=== PATIENT | female | born 1995 | race Caucasian/White ===

== ENCOUNTER 2016-11-30 16:28 | Observation (INO) | payer MEDICARE, BC ==
[2016-11-30] MEDS ORDERED: HYDROmorphone 1 MG/ML 1 ML SYRINGE IVP STA (16:53)
[2016-11-30] MEDS ORDERED: SODIUM CHLORIDE 0.9% 1,000 ML IV ONE (16:53)
[2016-11-30 17:45] LABS: Basophils # (A) 0.1 k/uL (0-0.2); Basophils % (A) 0 %; CH 29.7; CHCM 33.6; Eosinophils % (A) 0 %; HCT 44.6 % (34.0-46.0); HDW 2.74; HGB 14.8 gm/dL (11.4-16.0); Luc % (Auto) 1; Lymphocytes # (A) 1.3 k/uL (1.0-4.8); Lymphocytes % (A) 6 %; MCH 29.5 pg (25.0-35.0); MCHC 33.2 g/dL (31.0-37.0); MCV 88.8 fL (80.0-100.0); Mean Platelet Volume 8.3; Monocytes # (A) 0.7 k/uL (0-1.0); Monocytes % (A) 3 %; Neutrophils # (A) 19.4 k/uL (1.3-7.7); Neutrophils % (A) 90 %; RBC 5.02 m/uL (3.80-5.40); RDW 13.4 % (11.5-15.5); WBC 21.6 k/uL (3.8-10.6); WBC (Perox) 20.68
[2016-11-30 17:46] LABS: Anion Gap 10 mmol/L; Blood Urea Nitrogen 11 mg/dL (7-17); Calcium 9.4 mg/dL (8.4-10.2); Carbon Dioxide 17 mmol/L (22-30); Chloride 109 mmol/L (98-107); Glucose 117 mg/dL (74-99); INR 1.1 (<1.2); Non-African American GFR(MDRD) >60 (>60 ml/min/1.73 sqM); Partial Thromboplastin Time 24.3 sec (22.0-30.0); Potassium 4.1 mmol/L (3.5-5.1); Prothrombin Time 11.3 sec (9.0-12.0); Sodium 136 mmol/L (137-145)
[2016-11-30 17:50] LABS: Creatine Kinase 21 U/L (30-135)
[2016-11-30 18:03] LABS: Creatine Kinase MB 0.4 ng/mL (0.0-2.4); Troponin I <0.012 ng/mL (0.000-0.034)
--- NOTE | 2016-11-30 18:16 | CT ---
EXAMINATION TYPE: CT brain kristy gonsales DATE OF EXAM: 11/30/2016 COMPARISON: NONE HISTORY: Patient poor historian. Patient fell from chair. Patient has multiple facial contusions. CT DLP: 1416.[address] Brain: Unenhanced CT of the brain was performed. The ventricles, basal cisterns and sulci overlying the cerebral convexities demonstrate a normal appe arance. There is no evidence for intracranial hemorrhage or sulcal effacement. No mass effects are seen. If symptoms persist consider MRI. Osseous calvarium is intact. IMPRESSION: No acute intracranial process CT Cervical Spine: Unenhanced CT of the cervical spine was performed with bone and soft tissue window settings submitted . Coronal and sagittal reconstruction is obtained. There is normal alignment and prevertebral soft tissues. I do not see evidence for fracture or sublu xation. No significant degenerative changes are present. The lung apices are clear. IMPRESSION: No evidence for acute fracture or subluxation of the cervical spine.
--- NOTE | 2016-11-30 18:19 | CT ---
EXAMINATION TYPE: CT facial bones wo con DATE OF EXAM: 11/30/2016 COMPARISON: NONE HISTORY: Patient poor historian. Patient fell from chair. Patient has multiple facial contusions. CT DLP: 593.[address] of the facial bones was performed in the axial and coronal planes. Bone and soft tissu e window settings are submitted. No significant soft tissue swelling is appreciated. I do not see evidence for displaced facial bone fracture or depressed facial bone fracture. The globes are intact. 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 Osseous expansion of the floor of the right max illary sinus and lateral wall of the right maxillary sinus could reflect a degree of underlying fibro us dysplasia. IMPRESSION: 1. No evidence for depressed or displaced facial bone fracture.
--- NOTE | 2016-11-30 18:33 | ED ---
Fall HPI - General Chief Complaint: Fall Stated Complaint: FALL FROM CHAIR Time Seen by Provider: 11/30/16 16:38 Source: patient, family, EMS Mode of arrival: EMS - History of Present Illness Initial Comments: Patient is a 21-year-old female with a history of osteogenesis imperfecta presents with the chief complaint of a syncopal episode and fall. This happened about an hour prior to arrival. Patient states that she was sitting in a chair, does not remember the events leading up to her passing out. The fall was not witnessed, her brother heard her hit the floor and then found her unconscious. The patient was able to on her own, duration of down time is unknown. Patient was able to sit up from the floor however she needed help standing. Currently the patient complains of facial pain, neck pain, left elbow pain, and left leg pain. Patient has a history of multiple fractures in the past secondary to OI. Patient cannot think of any inciting incidences. She does not have any episodes similar in the past. - Related Data Home Medications Medication Instructions Recorded Confirmed Pantoprazole Sodium [Protonix] 1 tab PO BID 10/28/13 11/14/15 Topiramate [Topamax] 50 mg PO BID 10/28/13 11/14/15 Previous Rx's Medication Instructions Recorded Hydrocodone/Acetaminophen 1 each PO Q4HR PRN #20 tablet 10/28/13 [Hydrocodone/Acetaminophen 5-325] Promethazine [Phenergan] 12.5 mg PO Q4HR #20 tablet 05/14/14 HYDROcodone/APAP 5-325MG [Given 5] 1 each PO Q6HR PRN #15 tab 07/11/14 Hydrocodone/Acetaminophen [Given 1 each PO Q6HR PRN #20 tab 11/14/15 5-325] Allergies Allergy/AdvReac Type Severity Reaction Status Date / Time No Known Allergies Allergy Verified 11/30/16 16:43 Review of Systems ROS Statement: Those systems with pertinent positive or pertinent negative responses have been documented in the HPI. ROS Other: All systems not noted in ROS Statement are negative. Constitutional: Denies: fever Eyes: Denies: vision change ENT: Denies: congestion Respiratory: Denies: cough Cardiovascular: Denies: chest pain, palpitations Endocrine: Denies: fatigue Gastrointestinal: Denies: abdominal pain, nausea, vomiting Genitourinary: Denies: dysuria Musculoskeletal: Denies: back pain Skin: Denies: rash Neurological: Reports: headache Past Medical History Past Medical History: No Reported History Additional Past Medical History / Comment(s): OSTEOGENESIS IMPERFECTA History of Any Multi-Drug Resistant Organisms: None Reported Past Surgical History: Orthopedic Surgery Additional Past Surgical History / Comment(s): bilateral legs elbow left knee cap partial missing Past Psychological History: Anxiety, Depression Smoking Status: Never smoker Past Alcohol Use History: Rare Past Drug Use History: Marijuana General Exam Limitations: physical limitation General appearance: alert, in no apparent distress Head exam: Present: normocephalic, other (Patient had his blood in both nares, she has a linear abrasion to the right maxilla. There is no active bleeding.) Eye exam: Present: PERRL, other (Patient's sclera are blue and otherwise there are no acute findings.) Pupils: Present: normal accommodation ENT exam: Present: normal oropharynx, mucous membranes moist, TM's normal bilaterally, other (Patient has blood in both nares) Neck exam: Present: tenderness, other (Patient is in a c-collar) Respiratory exam: Present: normal lung sounds bilaterally. Absent: respiratory distress Cardiovascular Exam: Present: regular rate, normal rhythm, normal heart sounds GI/Abdominal exam: Present: soft. Absent: distended, tenderness, guarding Rectal exam: Present: deferred Extremities exam: Present: other (Patient has swelling along the lateral aspect of her left tibia.) Back exam: Present: normal inspection Neurological exam: Present: alert, oriented X3 Psychiatric exam: Present: normal affect, normal mood Skin exam: Present: warm, dry, intact Course Vital Signs 11/30/16 16:38 Temperature 97.0 F L Pulse Rate 93 Respiratory 18 Rate Blood Pressure 119/76 O2 Sat by Pulse 96 Oximetry Medical Decision Making - Medical Decision Making Patient with history of osteogenesis imperfecta presents with a chief complaint fall. She complains of head, neck, elbow, and leg pain. Patient has multiple disease related injuries in the past. Patient was given a dose of pain medication, will be sent for CT of the head and neck. I will get plain films of the chest, pelvis, left elbow, and left tibia. Basic and cardiac panel were sent for evaluation of the syncopal episode. I discussed the presentation with the patient and her mother, I will admit this patient for further workup of syncope. EKG performed at 5:35 PM shows normal sinus rhythm with a rate of 73 bpm. Symptoms appear to be within normal limits. There is no ST segment elevations or depressions. 7:52 PM Lab evaluation of this patient is unremarkable. CT scans of the head, neck, and face show no acute or displaced fractures. C-collar was cleared. Other x- ray evaluations do not identify any new acute fractures. I spoke with Dr. Catalan who accepts admission of this patient for further workup. At this time, he is requesting that a consult be placed for neurology. I will consult Dr. Odom. On reevaluation, the patient remains stable. I discussed the care plan with her and her mother. They're agreeable. At this time, all questions are answered. Patient is stable for transfer to the floor. - Lab Data Result diagrams: 11/30/16 17:26 11/30/16 17:26 Lab Results 11/30/16 11/30/16 11/30/16 Range/Units 17:26 17:26 17:26 WBC 21.6 H (3.8-10.6) k/uL RBC 5.02 (3.80-5.40) m/uL Hgb 14.8 (11.4-16.0) gm/dL Hct 44.6 (34.0-46.0) % MCV 88.8 (80.0-100.0) fL MCH 29.5 (25.0-35.0) pg MCHC 33.2 (31.0-37.0) g/dL RDW 13.4 (11.5-15.5) % Plt Count 291 (150-450) k/uL Neutrophils % 90 % Lymphocytes % 6 % Monocytes % 3 % Eosinophils % 0 % Basophils % 0 % Neutrophils # 19.4 H (1.3-7.7) k/uL Lymphocytes # 1.3 (1.0-4.8) k/uL Monocytes # 0.7 (0-1.0) k/uL Eosinophils # 0.0 (0-0.7) k/uL Basophils # 0.1 (0-0.2) k/uL PT (9.0-12.0) sec INR (<1.2) APTT (22.0-30.0) sec Sodium 136 L (137-145) mmol/L Potassium 4.1 (3.5-5.1) mmol/L Chloride 109 H (98-107) mmol/L Carbon Dioxide 17 L (22-30) mmol/L Anion Gap 10 mmol/L BUN 11 (7-17) mg/dL Creatinine 0.53 (0.52-1.04) mg/dL Est GFR (MDRD) Af Amer >60 (>60 ml/min/1.73 sqM) Est GFR (MDRD) Non-Af >60 (>60 ml/min/1.73 sqM) Glucose 117 H (74-99) mg/dL Calcium 9.4 (8.4-10.2) mg/dL Total Creatine Kinase 21 L (30-135) U/L CK-MB (CK-2) 0.4 (0.0-2.4) ng/mL CK-MB (CK-2) Rel Index 1.9 Troponin I <0.012 (0.000-0.034) ng/mL 11/30/16 Range/Units 17:26 WBC (3.8-10.6) k/uL RBC (3.80-5.40) m/uL Hgb (11.4-16.0) gm/dL Hct (34.0-46.0) % MCV (80.0-100.0) fL MCH (25.0-35.0) pg MCHC (31.0-37.0) g/dL RDW (11.5-15.5) % Plt Count (150-450) k/uL Neutrophils % % Lymphocytes % % Monocytes % % Eosinophils % % Basophils % % Neutrophils # (1.3-7.7) k/uL Lymphocytes # (1.0-4.8) k/uL Monocytes # (0-1.0) k/uL Eosinophils # (0-0.7) k/uL Basophils # (0-0.2) k/uL PT 11.3 (9.0-12.0) sec INR 1.1 (<1.2) APTT 24.3 (22.0-30.0) sec Sodium (137-145) mmol/L Potassium (3.5-5.1) mmol/L Chloride (98-107) mmol/L Carbon Dioxide (22-30) mmol/L Anion Gap mmol/L BUN (7-17) mg/dL Creatinine (0.52-1.04) mg/dL Est GFR (MDRD) Af Amer (>60 ml/min/1.73 sqM) Est GFR (MDRD) Non-Af (>60 ml/min/1.73 sqM) Glucose (74-99) mg/dL Calcium (8.4-10.2) mg/dL Total Creatine Kinase (30-135) U/L CK-MB (CK-2) (0.0-2.4) ng/mL CK-MB (CK-2) Rel Index Troponin I (0.000-0.034) ng/mL Disposition Clinical Impression: Syncope, Fall Disposition: ADMITTED IP TO THIS HOSP Condition: Good Referrals: Danielito Lott MD [Primary Care Provider] - 1-2 days Decision to Admit Reason: Admit from EC - Out of Hospital Transfer - Req. Specs Out of Hospital Transfer - Requested Specifics: Other Non-Acute
--- NOTE | 2016-11-30 19:28 | XR ---
EXAMINATION TYPE: XR tibia fibula LT DATE OF EXAM: 11/30/2016 CLINICAL HISTORY: pain TECHNIQUE: AP and lateral images of the left tibia and fibula are obtained. COMPARISON: None. FINDINGS: There is no acute fracture/dislocation evident. Intramedullary rods are seen within the fe mur and tibia. Diffuse bony osteopenia craniotomy compatible with osteogenesis imperfecta. The joint spaces appear within normal limits. The overlying soft tissue appears unremarkable. IMPRESSION: There is no acute fracture or dislocation seen. ICD 10 NO FRACTURE, INITIAL EVALUATION
--- NOTE | 2016-11-30 19:28 | XR ---
EXAMINATION TYPE: XR elbow complete LT DATE OF EXAM: 11/30/2016 CLINICAL HISTORY: pain TECHNIQUE: Frontal, lateral and oblique images of the left elbow are obtained. COMPARISON: None. FINDINGS: There is no acute fracture/dislocation evident of the elbow. Postoperative changes about t he left elbow with the fixation pins in place. No abnormal fat pad signs are seen. The overlying sof t tissue appears unremarkable. IMPRESSION: There is no acute fracture or dislocation of the elbow. ICD 10 NO FRACTURE, INITIAL EVALUATION
--- NOTE | 2016-11-30 19:29 | XR ---
EXAMINATION TYPE: XR knee complete LT DATE OF EXAM: 11/30/2016 CLINICAL HISTORY: pain TECHNIQUE: Three views of the left knee are obtained. COMPARISON: None. FINDINGS: There is no acute fracture/dislocation. Postoperative changes. Changes of osteogenesis im perfecta. The overlying soft tissue appears unremarkable. IMPRESSION: There is no acute fracture or dislocation ICD 10 NO FRACTURE, INITIAL EVALUATION
--- NOTE | 2016-11-30 19:30 | XR ---
EXAMINATION TYPE: XR chest 1V portable DATE OF EXAM: 11/30/2016 COMPARISON: NONE HISTORY: Chest pain TECHNIQUE: Single frontal view of the chest is obtained. FINDINGS: There is no focal air space opacity, pleural effusion, or pneumothorax seen. The cardiac silhouette size is within normal limits. The osseous structures are intact. IMPRESSION: 1. No acute process.
[2016-11-30] MEDS ORDERED: MORPHINE SULFATE 4 MG/ML SYRINGE IV PRN (19:55)
[2016-11-30] MEDS ORDERED: NALOXONE 0.4 MG/ML 1 ML VIAL IV PRN (19:55)
[2016-11-30] MEDS: KETOROLAC 30 MG/ML 1 ML VIAL IVP PRN (21:46)
[2016-11-30 22:09] VITALS: BMI 32.5
[2016-11-30 22:11] LABS: Appearance,Urine Cloudy (Clear); Bacteria,Urine Moderate /hpf; Bilirubin,Urine Negative (Negative); Glucose,Urine (UA) Negative (Negative); Ketones,Urine 1+ (Negative); Leukocyte Esterase,Urine Negative (Negative); Mucus,Urine Moderate /hpf; Nitrite,Urine Negative (Negative); Particle Count 7536; Protein,Urine Trace (Negative); RBC,Urine 3 /hpf (0-5); Specific Gravity,Urine 1.017 (1.001-1.035); Squamous Epithelial Cell,Urine 5 /hpf (0-4); UA Billing (MACRO vs. MICRO) MICRO; Urobilinogen,Urine <2.0 mg/dL (<2.0); WBC,Urine 3 /hpf (0-5)
[2016-12-01 06:11] LABS: Basophils # (A) 0.1 k/uL (0-0.2); Basophils % (A) 0 %; CH 30.3; CHCM 33.3; Eosinophils # (A) 0.1 k/uL (0-0.7); Eosinophils % (A) 1 %; HCT 40.4 % (34.0-46.0); HDW 2.66; HGB 12.9 gm/dL (11.4-16.0); Luc % (Auto) 2; Lymphocytes # (A) 1.8 k/uL (1.0-4.8); Lymphocytes % (A) 14 %; MCH 29.3 pg (25.0-35.0); MCV 91.5 fL (80.0-100.0); Mean Platelet Volume 8.8; Monocytes # (A) 0.7 k/uL (0-1.0); Monocytes % (A) 5 %; Neutrophils # (A) 10.2 k/uL (1.3-7.7); Neutrophils % (A) 78 %; RBC 4.42 m/uL (3.80-5.40); WBC (Perox) 12.57
[2016-12-01 06:22] LABS: Anion Gap 10 mmol/L; Blood Urea Nitrogen 11 mg/dL (7-17); Calcium 9.2 mg/dL (8.4-10.2); Carbon Dioxide 17 mmol/L (22-30); Chloride 110 mmol/L (98-107); Glucose 76 mg/dL (74-99); Non-African American GFR(MDRD) >60 (>60 ml/min/1.73 sqM); Potassium 4.2 mmol/L (3.5-5.1); Sodium 137 mmol/L (137-145)
[2016-12-01] MEDS: KETOROLAC 30 MG/ML 1 ML VIAL IVP PRN ×2 (07:17→12:18)
[2016-12-01] MEDS ORDERED: SODIUM CHLORIDE 0.9% 1,000 ML IV SCH (11:15)
--- NOTE | 2016-12-01 13:06 | P.CRDCN ---
History of Present Illness Consult date: 12/01/16 History of present illness: This is a 21-year-old female with past medical history significant for anxiety, depression, migraines and osteogenesis imperfecta. We have been asked to see the patient for complaints of a syncopal episode at home. She states she was sitting down in bed watching a movie when she became acutely nauseous and then passed out. She doesn't recall any events thereafter. Apparently her brother was home and witnessed the event. He denies any incontinence or seizure like activity. Prior to the event and immediately after she denies any symptoms of chest pain, shortness of breath, palpitations or vomiting. Blood pressure upon arrival 119/76 with heart rate 93, repeat today 101/64 with heart rate 78. She states her blood pressure runs on the low side typically. Hgb 12.9, BUN 11, Cr 0.4, cardiac enzymes negative x3. She admits to regular daily marijuana use. She denies any cardiac history and has never seen a adult services librarian for any reason. Review of Systems REVIEW OF SYSTEMS: CONSTITUTIONAL: No fever, no malaise, no fatigue. HEENT: No recent visual problems or hearing problems. Denied any sore throat. CARDIOVASCULAR: No chest pain, orthopnea, PND, positive syncope. PULMONARY: No shortness of breath, no cough, no hemoptysis. GASTROINTESTINAL: No diarrhea, no nausea, no vomiting, no abdominal pain. Normoactive bowel sounds. NEUROLOGICAL: No headaches, no weakness, no numbness. HEMATOLOGICAL: Denies any bleeding. GENITOURINARY: Denies any burning micturition, frequency, or urgency. MUSCULOSKELETAL/RHEUMATOLOGICAL: Denies any joint pain, swelling, or any muscle pain. ENDOCRINE: Denies any polyuria or polydipsia. Past Medical History Past Medical History: No Reported History Additional Past Medical History / Comment(s): OSTEOGENESIS IMPERFECTA History of Any Multi-Drug Resistant Organisms: None Reported Past Surgical History: Orthopedic Surgery Additional Past Surgical History / Comment(s): bilateral legs elbow left knee cap partial missing Past Anesthesia/Blood Transfusion Reactions: No Reported Reaction Past Psychological History: Anxiety, Depression Smoking Status: Never smoker Past Alcohol Use History: Rare Past Drug Use History: Marijuana Medications and Allergies Home Medications Medication Instructions Recorded Confirmed Type Topiramate [Topamax] 75 mg PO BID 10/28/13 11/30/16 History busPIRone HCl [Buspar] 10 mg PO BID 11/30/16 11/30/16 History Allergies Allergy/AdvReac Type Severity Reaction Status Date / Time No Known Allergies Allergy Verified 11/30/16 20:21 Physical Exam Vitals: Vital Signs Temp Pulse Pulse Resp BP BP Pulse Ox 12/01/16 07:12 97.8 F 78 17 101/64 99 12/01/16 03:02 97.7 F 83 16 89/49 98 12/01/16 00:00 16 11/30/16 22:00 97.6 F 88 16 112/70 96 11/30/16 16:38 97.0 F L 93 18 119/76 96 Intake and Output 11/30/16 12/01/16 12/01/16 22:59 06:59 14:59 Intake Total 1099 Output Total 0 Balance 1099 0 Intake: Intake, IV Titration 999 Amount Sodium Chloride 0.9% 1, 999 000 ml @ 999 mls/hr IV . Q1H1M ONE Rx#:[id number] Oral 100 Output: Urine 0 Other: Voiding Method Bedside Commode # Voids 1 1 Weight 58.967 kg GENERAL: This is a 21-year-old female in no apparent distress at the time of my examination. HEENT: Head is atraumatic, normocephalic. Pupils are equal, round. Sclerae anicteric. Conjunctivae are clear. Mucous membranes of the mouth are moist. Neck is supple. There is no jugular venous distention. No carotid bruit is heard. LUNGS: Clear to auscultation no wheezes, rales or rhonchi. No chest wall tenderness is noted on palpation or with deep breathing. HEART: Regular rate and rhythm without murmurs, rubs or gallops. S1 and S2 heard. ABDOMEN: Soft, nontender. Bowel sounds are heard. No organomegaly noted. EXTREMITIES: 2+ peripheral pulses with trace evidence of nonpitting peripheral edema and no calf tenderness noted. NEUROLOGIC: Patient is awake, alert and oriented x3. Results 12/01/16 05:23 12/01/16 05:23 Cardiac Enzymes 11/30/16 11/30/16 12/01/16 Range/Units 17:26 23:20 05:23 CK-MB (CK-2) 0.4 (0.0-2.4) ng/mL Troponin I <0.012 <0.012 <0.012 (0.000-0.034) ng/mL Coagulation 11/30/16 Range/Units 17:26 PT 11.3 (9.0-12.0) sec APTT 24.3 (22.0-30.0) sec CBC 11/30/16 12/01/16 Range/Units 17:26 05:23 WBC 21.6 H 13.0 H (3.8-10.6) k/uL RBC 5.02 4.42 (3.80-5.40) m/uL Hgb 14.8 12.9 (11.4-16.0) gm/dL Hct 44.6 40.4 (34.0-46.0) % Plt Count 291 236 (150-450) k/uL Comprehensive Metabolic Panel 11/30/16 12/01/16 Range/Units 17:26 05:23 Sodium 136 L 137 (137-145) mmol/L Potassium 4.1 4.2 (3.5-5.1) mmol/L Chloride 109 H 110 H (98-107) mmol/L Carbon Dioxide 17 L 17 L (22-30) mmol/L BUN 11 11 (7-17) mg/dL Creatinine 0.53 0.40 L (0.52-1.04) mg/dL Glucose 117 H 76 (74-99) mg/dL Calcium 9.4 9.2 (8.4-10.2) mg/dL Current Medications Generic Name Dose Route Start Last Admin Trade Name Freq PRN Reason Stop Dose Admin Sodium Chloride 1,000 mls @ 75 mls/hr 12/01/16 11:15 12/01/16 12:23 Saline 0.9% IV 75 mls/hr .[id number] LAM Administration Ketorolac Tromethamine 30 mg 11/30/16 19:55 12/01/16 12:18 Toradol IVP 12/05/16 19:56 30 mg Q6HR PRN Administration Moderate Pain Morphine Sulfate 4 mg 11/30/16 19:55 Morphine Sulfate (Inj) IV Q4HR PRN Severe Pain Naloxone HCl 0.2 mg 11/30/16 19:55 Narcan IV Q2M PRN Opioid Reversal Intake and Output 11/30/16 12/01/16 12/01/16 22:59 06:59 14:59 Intake Total 1099 Output Total 0 Balance 1099 0 Intake: Intake, IV Titration 999 Amount Sodium Chloride 0.9% 1, 999 000 ml @ 999 mls/hr IV . Q1H1M ONE Rx#:[id number] Oral 100 Output: Urine 0 Other: Voiding Method Bedside Commode # Voids 1 1 Weight 58.967 kg 12/01/16 05:23 12/01/16 05:23 EKG Interpretations (text) EKG reveals normal sinus mechanism with no acute ST or T-wave abnormalities. Assessment and Plan Plan: ASSESSMENT 1. Syncopal episode PLAN Echocardiogram was performed and reviewed in real time by Dr. Quan, normal LV function and structure, normal right ventricle and aortic root. Check orthostatic blood pressures. Continue with telemetry monitoring for arrhythmias. Thus far, from a cardiac perspective this doesn't appear to be cardiac related. Possibly vasovagal episode. Nurse Practitioner note has been reviewed, I agree with a documented findings and plan of care. Patient was seen and examined.
[2016-12-01 14:26] VITALS: PULSE 98; RESP 16; TEMP 98.1
[2016-12-01 14:43] VITALS: BP 102/65
--- NOTE | 2016-12-01 16:34 | P.HPIM ---
History of Present Illness This is a 21-year-old female with past medical history significant for anxiety, depression, migraines and osteogenesis imperfecta. We have been asked to see the patient for complaints of a syncopal episode at home. She states she was sitting down in bed watching a movie when she became acutely nauseous and then passed out. She doesn't recall any events thereafter. Apparently her brother was home and witnessed the event. He denies any incontinence or seizure like activity. Prior to the event and immediately after she denies any symptoms of chest pain, shortness of breath, palpitations or vomiting. Blood pressure upon arrival 119/76 with heart rate 93, repeat today 101/64 with heart rate 78. She states her blood pressure runs on the low side typically. cardiac enzymes negative x3. She admits to regular daily marijuana use. She denies any cardiac history and has never seen a dipping machine operator for any reason. patient had an echocardiogram which was negative monitoring analyst did not show any significant abnormality, patient was probably dehydrated received enough fluids is cleared for discharge from cardiology perspective and TSH is essentially within normal limits patient will be discharged to follow with primary care patient if she has falls again patient may need a Holter monitor. Review of Systems REVIEW OF SYSTEMS: CONSTITUTIONAL: No fever, no malaise, no fatigue. HEENT: No recent visual problems or hearing problems. Denied any sore throat. CARDIOVASCULAR: No chest pain, orthopnea, PND, no palpitations PULMONARY: No shortness of breath, no cough, no hemoptysis. GASTROINTESTINAL: No diarrhea, no nausea, no vomiting, no abdominal pain. Normoactive bowel sounds. NEUROLOGICAL: No headaches, no weakness, no numbness. HEMATOLOGICAL: Denies any bleeding or petechiae. GENITOURINARY: Denies any burning micturition, frequency, or urgency. MUSCULOSKELETAL/RHEUMATOLOGICAL: Denies any joint pain, swelling, or any muscle pain. ENDOCRINE: Denies any polyuria or polydipsia. The rest of the 14-point review of systems is negative. Past Medical History Past Medical History: No Reported History Additional Past Medical History / Comment(s): OSTEOGENESIS IMPERFECTA History of Any Multi-Drug Resistant Organisms: None Reported Past Surgical History: Orthopedic Surgery Additional Past Surgical History / Comment(s): bilateral legs elbow left knee cap partial missing Past Anesthesia/Blood Transfusion Reactions: No Reported Reaction Past Psychological History: Anxiety, Depression Smoking Status: Never smoker Past Alcohol Use History: Rare Past Drug Use History: Marijuana Medications and Allergies Home Medications Medication Instructions Recorded Confirmed Type Topiramate [Topamax] 75 mg PO BID 10/28/13 11/30/16 History busPIRone HCl [Buspar] 10 mg PO BID 11/30/16 11/30/16 History Allergies Allergy/AdvReac Type Severity Reaction Status Date / Time No Known Allergies Allergy Verified 11/30/16 20:21 Physical Exam Vitals: Vital Signs Temp Pulse Pulse Resp BP BP BP 12/01/16 14:25 98.1 F 98 16 12/01/16 12:00 73 115/71 111/72 12/01/16 07:12 97.8 F 78 17 12/01/16 03:02 97.7 F 83 16 12/01/16 00:00 16 11/30/16 22:00 97.6 F 88 16 11/30/16 16:38 97.0 F L 93 18 119/76 BP BP Pulse Ox 12/01/16 14:25 115/55 96 12/01/16 12:00 102/65 12/01/16 07:12 101/64 99 12/01/16 03:02 89/49 98 12/01/16 00:00 11/30/16 22:00 112/70 96 11/30/16 16:38 96 Intake and Output 12/01/16 12/01/16 12/01/16 06:59 14:59 22:59 Intake Total 180 Output Total 0 Balance 0 180 Intake: Oral 180 Output: Urine 0 Other: # Voids 1 3 PHYSICAL EXAMINATION: GENERAL: The patient is alert and oriented x3, not in any acute distress. Well developed, well nourished. HEENT: Pupils are round and equally reacting to light. EOMI. No scleral icterus. No conjunctival pallor. Normocephalic, atraumatic. No pharyngeal erythema. No thyromegaly. there are some lacerations from fall on the face CARDIOVASCULAR: S1 and S2 present. No murmurs, rubs, or gallops. PULMONARY: Chest is clear to auscultation, no wheezing or crackles. ABDOMEN: Soft, nontender, nondistended, normoactive bowel sounds. No palpable organomegaly. MUSCULOSKELETAL: No joint swelling or deformity. EXTREMITIES: No cyanosis, clubbing, or pedal edema. NEUROLOGICAL: Gross neurological examination did not reveal any focal deficits. SKIN: No rashes. Results CBC & Chem 7: 12/01/16 05:23 12/01/16 05:23 Labs: Abnormal Lab Results - Last 24 Hours (Table) 11/30/16 11/30/16 11/30/16 Range/Units 17:26 17:26 17:26 WBC 21.6 H (3.8-10.6) k/uL Neutrophils # 19.4 H (1.3-7.7) k/uL Sodium 136 L (137-145) mmol/L Chloride 109 H (98-107) mmol/L Carbon Dioxide 17 L (22-30) mmol/L Creatinine (0.52-1.04) mg/dL Glucose 117 H (74-99) mg/dL Total Creatine Kinase 21 L (30-135) U/L Urine Appearance (Clear) Urine Protein (Negative) Urine Ketones (Negative) Urine Blood (Negative) Ur Squamous Epith Cells (0-4) /hpf Urine Bacteria (None) /hpf Urine Mucus (None) /hpf Urine Opiates Screen (NotDetected) U Marijuana (THC) Screen (NotDetected) 11/30/16 12/01/16 12/01/16 Range/Units 21:47 05:15 05:23 WBC 13.0 H (3.8-10.6) k/uL Neutrophils # 10.2 H (1.3-7.7) k/uL Sodium (137-145) mmol/L Chloride (98-107) mmol/L Carbon Dioxide (22-30) mmol/L Creatinine (0.52-1.04) mg/dL Glucose (74-99) mg/dL Total Creatine Kinase (30-135) U/L Urine Appearance Cloudy H (Clear) Urine Protein Trace H (Negative) Urine Ketones 1+ H (Negative) Urine Blood Trace H (Negative) Ur Squamous Epith Cells 5 H (0-4) /hpf Urine Bacteria Moderate H (None) /hpf Urine Mucus Moderate H (None) /hpf Urine Opiates Screen Detected H (NotDetected) U Marijuana (THC) Screen Detected H (NotDetected) 12/01/16 Range/Units 05:23 WBC (3.8-10.6) k/uL Neutrophils # (1.3-7.7) k/uL Sodium (137-145) mmol/L Chloride 110 H (98-107) mmol/L Carbon Dioxide 17 L (22-30) mmol/L Creatinine 0.40 L (0.52-1.04) mg/dL Glucose (74-99) mg/dL Total Creatine Kinase (30-135) U/L Urine Appearance (Clear) Urine Protein (Negative) Urine Ketones (Negative) Urine Blood (Negative) Ur Squamous Epith Cells (0-4) /hpf Urine Bacteria (None) /hpf Urine Mucus (None) /hpf Urine Opiates Screen (NotDetected) U Marijuana (THC) Screen (NotDetected) Thrombosis Risk Factor Assmnt - Choose All That Apply Each Factor Represents 1 point: Obesity (BMI >25) Thrombosis Risk Factor Assessment Total Risk Factor Score: 1 Thrombosis Risk Factor Assessment Level: Low Risk Assessment and Plan Plan: #1 syncope: Echo cardiac within normal limits no significant changes on the telemetry probably related to dehydration R vasovagal eventpatient is being discharged today. #2 hyperchloremia leading to metabolic acidosis secondary to IV fluids. #3 osteogenesis imperfecta. #4 marijuana use: Counseling was provided #5 asymptomatic bacteriuria
--- NOTE | 2016-12-01 16:34 | P.DS ---
Providers Date of admission: 11/30/16 20:18 Attending physician: Mel Catalan Consults: 12/01/16 11:01 Consult Physician Routine Consulting Provider: Mo Quan Consult Reason/Comments: syncope/fall Do you want consulting provider notified?: Yes Primary care physician: Kaylie Esteves [facility] Course: please refer to HPI Patient Condition at Discharge: Good Plan - Discharge Summary New Discharge Prescriptions: No Action Topiramate [Topamax] 75 mg PO BID busPIRone HCl [Buspar] 10 mg PO BID Discharge Medication List Topiramate [Topamax] 75 mg PO BID 10/28/13 [History] busPIRone HCl [Buspar] 10 mg PO BID 11/30/16 [History] Follow up Appointment(s)/Referral(s): Danielito Lott MD [Primary Care Provider] - 12/05/16 1:20 pm Patient Instructions/Handouts: Syncope (DC) Discharge Disposition: HOME SELF-CARE
--- NOTE | 2016-12-02 09:30 | ECHOF ---
Referral Reason:syncope MEASUREMENTS -------- HEIGHT: 139.7 cm WEIGHT: 59.0 kg BP: IVSd: 0.9 cm (0.6 - 1.1) LVIDd: 3.4 cm (3.9 - 5.3) LVPWd: 1.0 cm (0.6 - 1.1) IVSs: 1.4 cm LVIDs: 2.2 cm LVPWs: 1.4 cm Ao Diam: 2.5 cm (2.0 - 3.7) AV Cusp: 1.7 cm (1.5 - 2.6) LA Diam: 2.9 cm (2.7 - 3.8) MV EXCURSION: 11.280 mm (> 18.000) MV EF SLOPE: 78 mm/s (70 - 150) EPSS: 1.0 cm MV E Eliezer: 0.93 m/s MV DecT: 273 ms MV A Eliezer: 0.73 m/s MV E/A Ratio: 1.27 RAP: 5.00 mmHg RVSP: 19.60 mmHg FINDINGS -------- Sinus rhythm. This was a technically good study. The left ventricular size is normal. Left ventricular wall thickness is normal. Overall left ventricular systolic function is normal with, an EF between 55 - 60 %. The right ventricle is normal in size and function. The left atrium is normal in size. The right atrium is normal in size. The aortic valve is trileaflet, and appears structurally normal. No aortic stenosis or regurgitation. The mitral valve leaflets are mildly thickened. Mild mitral regurgitation is present. Mild tricuspid regurgitation present. The right ventricular systolic pressure, as measured by Doppler, is 19.60mmHg. Pulmonic valve appears structurally normal. The aortic root size is normal. Normal inferior vena cava with normal inspiratory collapse consistent with estimated right atrial pressure of 5 mmHg. The pericardium is normal. CONCLUSIONS -------- 1. Sinus rhythm. 2. The mitral valve leaflets are mildly thickened. 3. Mild mitral regurgitation is present. 4. Mild tricuspid regurgitation present. 5. The right ventricular systolic pressure, as measured by Doppler, is 19.60mmHg. 6. Pulmonic valve appears structurally normal. 7. The aortic root size is normal. 8. Normal inferior vena cava with normal inspiratory collapse consistent with estimated right atrial pressure of 5 mmHg. 9. The pericardium is normal. 10. This was a technically good study. 11. The left ventricular size is normal. 12. Left ventricular wall thickness is normal. 13. Overall left ventricular systolic function is normal with, an EF between 55 - 60 %. 14. The right ventricle is normal in size and function. 15. The left atrium is normal in size. 16. The right atrium is normal in size. 17. The aortic valve is trileaflet, and appears structurally normal. No aortic stenosis or regurgitation. INFORMATION TECHNOLOGY INSTRUCTOR: Leonela Donahue RDCS
== END 2016-12-01 15:30 | disposition home or self-care (01) ==
LOC: EC 16:28 → 3SUR 20:18
PROVIDERS: ADMIT Internal Medicine; ATTEND Internal Medicine
DX: R55 Syncope and collapse (principal); S00.83XA Contusion of other part of head, initial encounter; S80.811A Abrasion, right lower leg, initial encounter; W07.XXXA Fall from chair, initial encounter; Y93.89 Activity, other specified; Q78.0 Osteogenesis imperfecta; M54.2 Cervicalgia; M79.605 Pain in left leg; M25.522 Pain in left elbow; F41.9 Anxiety disorder, unspecified; F32.9 Major depressive disorder, single episode, unspecified; G43.909 Migraine, unspecified, not intractable, without status migrainosus; F12.90 Cannabis use, unspecified, uncomplicated; R82.71 Bacteriuria; E87.8 Other disorders of electrolyte and fluid balance, not elsewhere classified; Z79.899 Other long term (current) drug therapy
CPT/HCPCS: 96376; 96361 ×2; 96375; 96374; 99285; 36415; 93005; 93306; 80048 ×2; 84443; 82550; 82553; 83735; 84484 ×2; 85025 ×2; 85610; 85730; 81001; 80306; 71010; 73080; 73590; 73562; 72125; 70486; 70450; G0378 ×2; J1885 ×2; J1170

== ENCOUNTER → 2017-06-21 | Outpatient (CLI) | payer MEDICARE ==
--- NOTE | 2017-06-21 21:21 | MR ---
EXAMINATION TYPE: MR brain wo con DATE OF EXAM: 06/21/2017 COMPARISON: 09/27/2013 HISTORY: Headaches and Dizzy, previous MRI on PACS CONTRAST: Performed utilizing 0 mL intravenous Gadavist gadolinium contrast. TECHNIQUE: Multiplanar, multiecho imaging on a 3.0 Ashley magnet is performed through the brain. Stud y is performed within 24 hours of arrival to the hospital. The craniovertebral junction is normal. The pituitary is normal. Diffusion-weighted imaging is performed. No abnormal hyperintensity is present to suggest an acute i ntracranial infarct or acute ischemic change. Signal within the brain is normal. Portion of the optic chiasm visualized is unremarkable. Normal cece w-voids are present within vascular structures. Orbits appear normal. Internal auditory canals appear normal. Temporal lobes are symmetrical. Ventricles and sulci are appropriate for the patient age. IMPRESSIONS: 1. No acute intracranial process.
== END | disposition home or self-care (01) ==
LOC: RADMRIMAIN 17:01
PROVIDERS: ATTEND Psychiatry & Neurology Neurology
DX: R51 Headache (principal); R42 Dizziness and giddiness; Z88.0 Allergy status to penicillin; Z91.040 Latex allergy status
CPT/HCPCS: 70551

== ENCOUNTER 2017-07-12 12:23 | Emergency (ER) | payer MEDICARE ==
[2017-07-12] MEDS ORDERED: IBUPROFEN 600 MG TAB PO STA (12:44)
[2017-07-12 12:46] VITALS: RESP 16; TEMP 98
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
--- NOTE | 2017-07-12 13:06 | XR ---
EXAMINATION TYPE: XR wrist limited RT DATE OF EXAM: 07/12/2017 COMPARISON: 06/12/2012 HISTORY: 22-year-old female wrist pain after fall today TECHNIQUE: 2 views FINDINGS: There are angulated oblique fractures of the distal radial and ulnar metaphyses with mild comminution and associated soft tissue swelling. There is radial and dorsal angulation. Slight extension of the radial fracture into the distal radial ulnar joint. Old healed fracture deformity of the third metaca rpal shaft. IMPRESSION: Angulated oblique fractures of the distal radial and ulnar metaphyses with mild comminution. The radi al fracture extends into the distal radioulnar joint.
[2017-07-12] MEDS ORDERED: MORPHINE SULFATE 4 MG/ML SYRINGE IM STA (13:37)
[2017-07-12] MEDS ORDERED: ONDANSETRON ODT 4 MG TAB PO STA (14:05)
[2017-07-12 14:43] VITALS: BP 130/78; PULSE 88
== END 2017-07-12 14:40 | disposition home or self-care (01) ==
LOC: EC 12:23
DX: S59.001A Unspecified physeal fracture of lower end of ulna, right arm, initial encounter for closed fracture (principal); S59.201A Unspecified physeal fracture of lower end of radius, right arm, initial encounter for closed fracture; F41.9 Anxiety disorder, unspecified; F32.9 Major depressive disorder, single episode, unspecified; Z79.899 Other long term (current) drug therapy; Q78.0 Osteogenesis imperfecta; W22.8XXA Striking against or struck by other objects, initial encounter
CPT/HCPCS: 73100; 99283; 29125; 96372; J2270

== ENCOUNTER 2017-07-17 13:28 | Day surgery (SDC) | payer MEDICARE ==
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
[~2017-07-17 13:28] MED LIST: ceFAZolin 1,000 MG in DEXTROSE/WATER 1 50ML.BAG IV ONE
[2017-07-17] MEDS ORDERED: LACTATED RINGERS 1,000 ML IV ONE (14:54)
[2017-07-17] MEDS ORDERED: MIDAZOLAM 2 MG/2 ML VIAL ONE (14:54)
[2017-07-17] MEDS ORDERED: LIDOCAINE 1% 20 ML VIAL (10MG/ML) FOR IV START INTRADERMA ONE (15:01)
[2017-07-17] MEDS ORDERED: ONDANSETRON 4 MG/2 ML VIAL ONE (15:17)
[2017-07-17] MEDS ORDERED: DEXAMETHASONE SOD PHOSPHATE 10 MG/ML 1 ML VIAL IV ONE (15:29)
[2017-07-17 17:43] VITALS: BMI 28.5
[2017-07-17] MEDS ORDERED: BUTALB/APAP/CAFF 50-325-40MG TAB PO PRN (19:02)
[2017-07-17] MEDS: TOPIRAMATE 25 MG TAB PO SCH (20:14)
[2017-07-17] MEDS: busPIRone HCl 10 MG TAB PO SCH (20:15)
[2017-07-17] MEDS ORDERED: ONDANSETRON 4 MG/2 ML VIAL IVP PRN (21:28)
[2017-07-17] MEDS: MORPHINE SULFATE 4 MG/ML SYRINGE IVP PRN (22:15)
[2017-07-18] MEDS: MORPHINE SULFATE 4 MG/ML SYRINGE IVP PRN (02:34)
[2017-07-18] MEDS ORDERED: ceFAZolin 1,000 MG in DEXTROSE/WATER 1 50ML.BAG IVPB ONE (05:00)
[2017-07-18] MEDS ORDERED: IV FLUID CONTINUATION 1,000 ML IV ONE (06:49)
[2017-07-18] MEDS ORDERED: MIDAZOLAM 2 MG/2 ML VIAL ONE (07:21)
[2017-07-18] MEDS ORDERED: fentaNYL (PF) 50 MCG/ML 2 ML AMP ONE (07:21)
[2017-07-18] MEDS ORDERED: LIDOCAINE 1% INJ 10MG/ML (20 ML MDV) ONE (07:21)
[2017-07-18] MEDS ORDERED: PROPOFOL 10 MG/ML 20 ML VIAL IV ONE (07:21)
[2017-07-18] MEDS ORDERED: ONDANSETRON 4 MG/2 ML VIAL ONE (07:21)
--- NOTE | 2017-07-18 08:11 | P.OP ---
Date of Procedure: 07/18/17 Preoperative Diagnosis: Displaced right extra-articular distal radius/ulnar fractures Postoperative Diagnosis: Same Procedure(s) Performed: Closed reduction with percutaneous pinning right distal extra-articular radius fracture Implants: 0.062 inch K wire 3 Anesthesia: KATHY Surgeon: [employer] Librarian #1: Brenden Young Estimated Blood Loss (ml): 1 Pathology: none sent Condition: stable Disposition: PACU Indications for Procedure: The patient's a 22-year-old female with osteogenesis imperfecta who presents after falling injuring her right wrist. Upon evaluation she is noted have a closed, comminuted right distal radius and ulna fracture. A discussion of the risks and benefits of operative intervention was made with patient. She opted to proceed. I informed her we likely proceed with closed reduction and percutaneous pinning. Specific risks of this procedure to include infection, neurovascular injury, possible development of nonunion, malunion, and possible need for subsequent procedures was discussed. Informed consent was obtained. Operative Findings: As below Description of Procedure: The patient was brought to the operating room, and after induction of general anesthesia the right distal radius nor fracture was reduced with longitudinal traction and manipulation. This was verified with fluoroscopy. The right upper extremity was prepped and draped in a normal fashion. 2 K wires measuring 0.062 inch in diameter were then placed starting and the radial styloid spanning the fracture site proximally. A third 0.062 inch K wire was placed along the dorsal ulnar corner of the distal radius spanning the fracture site proximally. Final fluoroscopic views to include AP, PA, and lateral views showed adequate reduction of this comminuted extra-articular distal radius fracture. The distal ulna fracture. Reasonably aligned. The pins were clipped below the skin. A well molded sugar tong splint was placed. The patient was awoken from general anesthesia and transferred to the recovery room in good condition. Blood loss was estimated at 1 mL. No complications were incurred.
[2017-07-18] MEDS: HYDROmorphone 0.5 MG/0.5 ML SYRINGE IVP ONE ×2 (08:16→08:25)
--- NOTE | 2017-07-18 08:25 | FL ---
Fluoroscopy INDICATION: Pain FINDINGS: Fluoroscopy time: 42 seconds. Images obtained: 5. IMPRESSIONS: 1. Documentation of fluoroscopy.
--- NOTE | 2017-07-18 08:34 | XR ---
Fluoroscopy INDICATION: Pain FINDINGS: Fluoroscopy time: 42 seconds. Images obtained: 5. Images demonstrate pinning of the distal radial fracture. Ulnar fractures within the [id number]. IMPRESSIONS: 1. Documentation of fluoroscopy.
[2017-07-18] MEDS: TOPIRAMATE 25 MG TAB PO SCH (09:25)
[2017-07-18] MEDS: busPIRone HCl 10 MG TAB PO SCH (09:25)
[2017-07-18] MEDS ORDERED: IBUPROFEN 400 MG TAB PO PRN (10:36)
[2017-07-18 11:55] VITALS: PULSE 62; RESP 18
--- NOTE | 2017-07-18 14:22 | P.DS ---
Providers Date of admission: 07/17/2017 Expected date of discharge: 07/18/17 Attending physician: Jaime Enriquez Primary care physician: Kaylie Esteves [place] Hospital Course: Date of admission: 07/17/2014 Date of discharge: 07/18/2017 Admission diagnosis: Displaced right distal radius fracture Discharge diagnosis: Status post closed reduction with percutaneous pinning right distal radius fracture Attending physician: Dr. Enriquez Surgical procedures: Postreduction with retained is pinning right distal radius fracture Brief history: Patient is a 22-year-old female who was evaluated in the outpatient setting by Dr. Enriquez with regards to right wrist injury. She has a displaced right distal radius fracture and ulnar fracture. Treatment options were discussed, she was performed for a closed reduction with 15 is pinning of the right distal radius. Hospital course: Details of patient's surgery can be found in operative report. Patient tolerated the procedure well and was subsequently transported to orthopedic floor. Patient's orthopeidc and medical care was provided daily. Patient had daily laboratory tests performed for evaluation of overall blood counts. Patient was noted to have a relatively uneventful postoperative course. Patient reported satisfactory pain control with oral pain medications by postoperative day 0. Patient moved steadily through the program and had no difficulty meeting the goals by postoperative day 0. Given patient's otherwise satisfactory course and having met physical therapy goals, plan is to discharge patient home on postoperative day 0. Discharge condition/disposition: Patient will be discharged home in stable condition. Discharge medications: Instructions are given on resumption of patient's normal daily medications per primary care recommendation, in addition patient will be prescribed Warwick 5mg/325mg, ibuprofen 800mg Discharge instructions: 1. Resume home medications of discharge 2. Utilize arm sling 3. Do not remove splint 4. Keep splint clean and dry while showering 5. [facility]-up at [facility] 1 week for repeat check and x-rays of wrist Procedures: Closed reduction with percutaneous pinning right distal radius fracture Patient Condition at Discharge: Good Plan - Discharge Summary New Discharge Prescriptions: New Hydrocodone/Acetaminophen [Warwick 5-325] 1 - 2 each PO Q6HR PRN #30 tab PRN Reason: Pain Ibuprofen 800 mg PO Q8HR PRN #30 tablet PRN Reason: Pain No Action Topiramate [Topamax] 75 mg PO BID busPIRone HCl [Buspar] 10 mg PO BID Butalb/APAP/Caff 50-325-40Mg [Fioricet 50-325-40] 1 tab PO Q6HR PRN PRN Reason: Headache Discharge Medication List Topiramate [Topamax] 75 mg PO BID 10/28/13 [History] busPIRone HCl [Buspar] 10 mg PO BID 11/30/16 [History] Butalb/APAP/Caff 50-325-40Mg [Fioricet 50-325-40] 1 tab PO Q6HR PRN 07/17/17 [ History] Hydrocodone/Acetaminophen [Warwick 5-325] 1 - 2 each PO Q6HR PRN #30 tab 07/18/17 [Rx] Ibuprofen 800 mg PO Q8HR PRN #30 tablet 07/18/17 [Rx] Follow up Appointment(s)/Referral(s): Brenden Young PAC [PHYSICIAN RIVETER HELPER] - 1 Week Activity/Diet/Wound Care/Special Instructions: Discharge instructions: 1. Resume home medications after discharge 2. Utilize arm sling 3. Cast clean and dry, keep covered while showering 4. Pain medication as needed 5. Follow-up with [facility] in 1 week for recheck and x-ray evaluation Discharge Disposition: HOME SELF-CARE
[2017-07-18 14:26] VITALS: BP 97/60; TEMP 98.1
== END 2017-07-18 15:13 | disposition home or self-care (01) ==
LOC: OR 13:28 → 6PED 16:58 → OR 07-18 15:13
PROVIDERS: ATTEND Orthopaedic Surgery
DX: S52.501A Unspecified fracture of the lower end of right radius, initial encounter for closed fracture (principal); S52.601A Unspecified fracture of lower end of right ulna, initial encounter for closed fracture; Q78.0 Osteogenesis imperfecta; J45.909 Unspecified asthma, uncomplicated; G43.909 Migraine, unspecified, not intractable, without status migrainosus; Z79.1 Long term (current) use of non-steroidal anti-inflammatories (NSAID); Z79.01 Long term (current) use of anticoagulants; Z79.899 Other long term (current) drug therapy; Z79.891 Long term (current) use of opiate analgesic
CPT/HCPCS: 25606; 25651; 81025; 73100; J2250 ×2; J2270 ×2; J1100; J2405 ×2; J2001; J3010; J0690; J2704; J1170

== ENCOUNTER 2017-09-22 07:56 | Day surgery (SDC) | payer MEDICARE ==
[2017-09-18 10:37] VITALS: BMI 25.9
--- NOTE | 2017-09-21 09:09 | HP ---
HISTORY AND PHYSICAL CHIEF COMPLAINT: Right wrist pain. HISTORY OF PRESENT ILLNESS: The patient is a 22-year-old right-hand dominant female who presents after undergoing closed reduction and percutaneous pinning of a displaced right distal radius and ulnar neck fracture on July 17, 2017, with irritation over the hardware site. She is having a difficult time wearing her brace because of increasing discomfort. PAST MEDICAL HISTORY: Significant for asthma, chronic migraines, and osteogenesis imperfecta. PAST SURGICAL HISTORY: Significant for fixation of multiple previous fractures including her left elbow, left tibia, right tibia and right knee. CURRENT MEDICATIONS: 1. Ibuprofen. 2. Pepcid. She has no known drug allergies. FAMILY HISTORY: Significant for cancer and hypertension. SOCIAL HISTORY: Negative for current tobacco or alcohol use. REVIEW OF SYSTEMS: A 16 point review of systems otherwise reviewed and is noncontributory. PHYSICAL EXAMINATION: On examination, the patient is approximately 4 foot 4, 115 pounds of endomorphic habitus. HEENT exam is nonfocal. Neck is supple, she is nontender about the right shoulder and elbow. She does have some limitation of forearm rotation on the right. She is tender about the radial styloid with a palpable pin along with the volar ulnar forearm. There is mild dorsal swelling of the wrist. She is nontender over the distal radius itself. Light touch is distally intact. X-rays of right wrist obtained in the office show previous pinning of the distal radius fracture in reasonable alignment. There is ulnar migration of one of the pins. IMPRESSION: 1. Status post pinning right distal radius fracture with irritating hardware. 2. History of osteogenesis imperfecta. RECOMMENDATIONS: I talked to the patient at length regarding her condition and treatment options. At this point, will plan to proceed with removal of the irritating hardware utilizing local anesthetic and IV sedation. We will likely perform that as an outpatient procedure. Risks and benefits were discussed at length in layman's terms. MMODL / IJN: [id number] /
[~2017-09-22 07:56] MED LIST changes: +DEXAMETHASONE SOD PHOSPHATE 10 MG/ML 1 ML VIAL IV ONE; +LACTATED RINGERS 1,000 ML IV SCH; +LIDOCAINE 1% 20 ML VIAL (10MG/ML) FOR IV START INTRADERMA PRN; +ONDANSETRON 4 MG/2 ML VIAL IVP ONE; +fentaNYL (PF) 50 MCG/ML 2 ML AMP IV PRN
[2017-09-22 08:43] VITALS: RESP 16; TEMP 98.7
[2017-09-22] MEDS: MIDAZOLAM 2 MG/2 ML VIAL IV PRN ×2 (08:51→09:01)
[2017-09-22] MEDS ORDERED: MIDAZOLAM 2 MG/2 ML VIAL ONE (09:10)
[2017-09-22] MEDS ORDERED: LIDOCAINE 1% INJ 10MG/ML (20 ML MDV) ONE (09:10)
[2017-09-22] MEDS ORDERED: PROPOFOL 10 MG/ML 20 ML VIAL IV ONE (09:10)
[2017-09-22] MEDS ORDERED: LIDOCAINE 1% (PF) 10 MG/ML (30 ML SDV) SQ ONE (09:10)
[2017-09-22] MEDS ORDERED: fentaNYL (PF) 50 MCG/ML 2 ML AMP ONE (09:10)
--- NOTE | 2017-09-22 09:36 | P.OP ---
Date of Procedure: 09/22/17 Preoperative Diagnosis: Irritating hardware right wrist Postoperative Diagnosis: same Procedure(s) Performed: Removal the retained hardware- 2 K wires right wrist Anesthesia: MAC, local Surgeon: Jaime Enriquez Estimated Blood Loss (ml): 1 Pathology: none sent Condition: stable Disposition: PACU Indications for Procedure: The patient is a 22-year-old female who underwent previous closed reduction pinning of her right distal radius fracture previously who presented with irritation secondary to the hardware. A discussion of the risks and benefits of hardware removal was made with the patient. She opted to proceed. Operative risks to include infection, neurovascular injury , development of blood clots, and possible need for subsequent procedures was discussed. Informed consent was obtained. Operative Findings: as below Description of Procedure: the patient was brought to the operating room, and after induction of IV sedation the right upper extremity was prepped and draped in normal fashion. 2 small incisions sites were planned over the palpable hardware. 4 mL of 1% plain lidocaine was injected. a 3 mm incision was made over the radial styloid. The skin was incised sharply. Subcutaneous tissues were divided bluntly. The K wire was easily removed from the radial styloid. the ulnar-sided pin was palpated and a 3 mm skin incision was made. skin was incised sharply. Subcu tissues were divided bluntly. The patient was then easily removed. The wounds were closed with Steri-Strips. A sterile dressing was applied. The patient was then awoken from sedation and transferred to recovery room in good condition. Blood loss was estimated at 1 mL. No complications were incurred.
[2017-09-22 10:31] VITALS: BP 101/66; PULSE 75
== END 2017-09-22 10:44 | disposition home or self-care (01) ==
LOC: OR 07:56
PROVIDERS: ATTEND Orthopaedic Surgery
DX: T84.84XA Pain due to internal orthopedic prosthetic devices, implants and grafts, initial encounter (principal); J45.909 Unspecified asthma, uncomplicated; Q78.0 Osteogenesis imperfecta; Z79.1 Long term (current) use of non-steroidal anti-inflammatories (NSAID); Z79.899 Other long term (current) drug therapy; K21.9 Gastro-esophageal reflux disease without esophagitis; Z91.040 Latex allergy status
CPT/HCPCS: 81025; 20680; J2250; J1100; J2405; J2001 ×2; J3010; J0690; J2704

== ENCOUNTER 2018-05-05 01:10 | Emergency (ER) | payer MEDICARE ==
[2018-05-05 01:16] VITALS: TEMP 97.8
[2018-05-05] MEDS ORDERED: diphenhydrAMINE 50 MG/ML 1 ML VIAL IVP STA (01:37)
[2018-05-05] MEDS ORDERED: METOCLOPRAMIDE 5 MG/ML 2 ML VIAL IVP STA (01:37)
[2018-05-05] MEDS ORDERED: KETOROLAC 30 MG/ML 1 ML VIAL IVP STA (01:37)
[2018-05-05] MEDS ORDERED: SODIUM CHLORIDE 0.9% 1,000 ML IV ONE (01:38)
--- NOTE | 2018-05-05 03:29 | ED ---
Headache HPI - General Chief Complaint: Headache Stated Complaint: Vomiting/Headache Time Seen by Provider: 05/05/18 01:24 Mode of arrival: ambulatory Limitations: no limitations - History of Present Illness Initial Comments: 23-year-old female patient presents to the emergency department today for evaluation of migraine headache. Patient states she has had a headache for the last 12 hours. States she has had nausea and several episodes of vomiting with this. States she is having light and sound sensitivity. She denies any blurred or double vision. Denies any numbness, tingling, or weakness to her extremities. Patient does have history of migraine headache and states her symptoms are consistent with her usual migraine pattern. States she has taken her usual medications without relief. Denies any chance of . Patient denies any recent rash, shortness breath, chest pain, abdominal pain, diarrhea, constipation, back pain, dizziness, weakness, hematuria, dysuria, urinary urgency, urinary frequency, or any other complaints. - Related Data Home Medications Medication Instructions Recorded Confirmed Topiramate [Topamax] 50 mg PO QAM 10/28/13 05/05/18 Citalopram Hydrobromide [CeleXA] 20 mg PO QAM 09/18/17 05/05/18 Allergies Allergy/AdvReac Type Severity Reaction Status Date / Time latex Allergy Rash/Hives Verified 09/22/17 08:16 Review of Systems ROS Statement: Those systems with pertinent positive or pertinent negative responses have been documented in the HPI. ROS Other: All systems not noted in ROS Statement are negative. Past Medical History Past Medical History: Asthma, GERD/Reflux Additional Past Medical History / Comment(s): OSTEOGENESIS IMPERFECTA, seasonal asthma. History of Any Multi-Drug Resistant Organisms: None Reported Past Surgical History: Orthopedic Surgery Additional Past Surgical History / Comment(s): Bilateral leg surgery, elbow surgery, left knee cap partially missing; HAS HAD MULTIPLE ORTHOPEDIC SURGERIES. Past Anesthesia/Blood Transfusion Reactions: No Reported Reaction Past Psychological History: Anxiety, Depression Smoking Status: Never smoker Past Alcohol Use History: None Reported Past Drug Use History: Marijuana - Past Family History Mother Family Medical History: No Reported History General Exam Limitations: no limitations General appearance: alert, in no apparent distress, other (Physical well- developed, well-nourished adult female patient in no acute distress. Vital si gns upon presentation are temperature 97.8F, pulse 107, respirations 20, blood pressure 114/79, pulse ox 97% on room air.) Eye exam: Present: normal appearance, PERRL, EOMI. Absent: scleral icterus, conjunctival injection, nystagmus, periorbital swelling ENT exam: Present: normal exam, normal oropharynx, mucous membranes moist Respiratory exam: Present: normal lung sounds bilaterally. Absent: respiratory distress, wheezes, rales, rhonchi, stridor Cardiovascular Exam: Present: regular rate, normal rhythm, normal heart sounds. Absent: systolic murmur, diastolic murmur, rubs, gallop, clicks GI/Abdominal exam: Present: soft, normal bowel sounds. Absent: distended, t enderness, guarding, rebound, rigid Neurological exam: Present: alert, oriented X3, CN II-XII intact, other (Strength in all 4 extremities is 5/5.) Psychiatric exam: Present: normal affect, normal mood Skin exam: Present: warm, dry, intact, normal color. Absent: rash Course Vital Signs 05/05/18 05/05/18 01:13 04:21 Temperature 97.8 F Pulse Rate 107 H 91 Respiratory 20 16 Rate Blood Pressure 114/79 100/55 O2 Sat by Pulse 97 97 Oximetry Medical Decision Making - Medical Decision Making 23-year-old female patient presented to the emergency department today for evaluation of migraine headache with vomiting. Patient states symptoms are consistent with her usual migraine pattern, she reports no new symptoms. Physical examination was unremarkable, she is neurologically intact with no focal deficits. She was given IV fluids and IV meds. Upon reevaluation she reports complete resolution of symptoms are just felt comfortable being discharged home at this time. She'll be discharged home to follow-up with her primary care physician for recheck in 1-2 days. Return parameters were discussed in detail. She verbalizes understanding and agrees this plan. Disposition Clinical Impression: Migraine headache Disposition: HOME SELF-CARE Condition: Good Instructions (If sedation given, give patient instructions): Migraine Headache (ED) Additional Instructions: Increase fluids. Take home medications as directed. Follow-up through primary care physician for recheck in 1-2 days. Return to the emergency department immediately for any new, worsening, or concerning symptoms. Is patient prescribed a controlled substance at d/c from ED?: No Referrals: Danielito Lott MD [Primary Care Provider] - 1-2 days Time of Disposition: 03:29
[2018-05-05 04:22] VITALS: BP 100/55; PULSE 91; RESP 16
== END 2018-05-05 04:21 | disposition home or self-care (01) ==
LOC: EC 01:10
DX: G43.909 Migraine, unspecified, not intractable, without status migrainosus (principal); F41.9 Anxiety disorder, unspecified; F32.9 Major depressive disorder, single episode, unspecified; Z79.899 Other long term (current) drug therapy; Z91.040 Latex allergy status
CPT/HCPCS: 99283; 96374; 96375 ×2; 96361 ×2; J1200; J2765; J1885

== ENCOUNTER 2018-06-23 22:10 | Emergency (ER) | payer MEDICARE ==
--- NOTE | 2018-06-23 23:04 | XR ---
EXAM: XR Right Ankle Complete, 3 or More Views CLINICAL HISTORY: ITS.REASON XR Reason: Pain TECHNIQUE: Frontal, lateral and oblique views of the right ankle. COMPARISON: No relevant prior studies available. FINDINGS: Bones/joints: Hardware in the distal tibia is intact . No acute fracture. No dislocation. Soft tissues: Unremarkable. IMPRESSION: No acute findings.
--- NOTE | 2018-06-23 23:13 | ED ---
Lower Extremity Injury HPI - General Chief Complaint: Extremity Injury, Lower Stated Complaint: Rt Ankle Injury Time Seen by Provider: 06/23/18 22:37 Source: patient Mode of arrival: ambulatory Limitations: no limitations - History of Present Illness Initial Comments: 23-year-old female presented today for chief complaint of right ankle pain. Patient states just prior to getting into bed she felt like her ankle gave out. Patient has history of osteogenesis imperfecta. Patient states she has pain with weightbearing and range of motion. Remaining review of systems negative patient denies any injury to the head neck or back. Patient denies any recent fever, chills, shortness of breath, chest pain, back pain, abdominal pain, nausea or vomiting, numbness or tingling, dysuria or hematuria, constipation or diarrhea, headaches or visual changes, or any other complaints. - Related Data Home Medications Medication Instructions Recorded Confirmed Topiramate [Topamax] 50 mg PO QAM 10/28/13 05/05/18 Citalopram Hydrobromide [CeleXA] 20 mg PO QAM 09/18/17 05/05/18 Allergies Allergy/AdvReac Type Severity Reaction Status Date / Time latex Allergy Rash/Hives Verified 06/23/18 22:30 Review of Systems ROS Statement: Those systems with pertinent positive or pertinent negative responses have been documented in the HPI. ROS Other: All systems not noted in ROS Statement are negative. Past Medical History Past Medical History: Asthma, GERD/Reflux Additional Past Medical History / Comment(s): OSTEOGENESIS IMPERFECTA, seasonal asthma. History of Any Multi-Drug Resistant Organisms: None Reported Past Surgical History: Orthopedic Surgery Additional Past Surgical History / Comment(s): Bilateral leg surgery, elbow surgery, left knee cap partially missing; HAS HAD MULTIPLE ORTHOPEDIC SURGERIES. Past Anesthesia/Blood Transfusion Reactions: No Reported Reaction Past Psychological History: Anxiety, Depression Smoking Status: Never smoker Past Alcohol Use History: None Reported Past Drug Use History: Marijuana - Past Family History Mother Family Medical History: No Reported History General Exam - General Exam Comments Initial Comments: General: The patient is awake and alert, in no distress, and does not appear acutely ill. Eye: Pupils are equal, round and reactive to light, extra-ocular movements are intact. No nystagmus. There is normal conjunctiva bilaterally. No signs of icterus. Ears, nose, mouth and throat: There are moist mucous membranes and no oral lesions. Neck: The neck is supple, there is no tenderness or JVD. Cardiovascular: There is a regular rate and rhythm. No murmur, rub or gallop is appreciated. Respiratory: Lungs are clear to auscultation, respirations are non-labored, breath sounds are equal. No wheezes, stridor, rales, or rhonchi. Musculoskeletal: Upon inspection of the ankles bilaterally there is no significant soft tissue swelling of the right ankle in comparison with the left. No noted laxity. Patient diffusely tender to the ankle joint Normal ROM of the right ankle, patient complains of tenderness with all range of motion both proximal and distal to injury site. Strength 5/5. Sensation intact. Dorsalis pedis Pulses equal bilaterally 2+. Neurological: A&O x 3. CN II-XII intact, There are no obvious motor or sensory deficits. Coordination appears grossly intact. Speech is normal. Skin: Skin is warm and dry and no rashes or lesions are noted. Psychiatric: Cooperative, appropriate mood & affect, normal judgment. Limitations: no limitations Course Vital Signs 06/23/18 06/24/18 22:27 00:02 Temperature 98.3 F 98.4 F Pulse Rate 88 80 Respiratory 20 18 Rate Blood Pressure 108/75 118/78 O2 Sat by Pulse 97 98 Oximetry Medical Decision Making - Medical Decision Making 23-year-old female presenting today for chief complaint of right ankle pain. Patient states she felt as though her right ankle gave out getting into bed. Patient's history of osteogenesis imperfecta. Imaging states negative for acute process. Patient has difficulty weightbearing patient placed in splint and given NWB instruction. She is to follow-up with orthopedic surgery in next 2-4 days. Return parameters were discussed at length the patient who verbalized understanding. After discussing case attempting provider Dr. Lorenzo patient is discharged appearing well. Disposition Clinical Impression: Right ankle injury, Right ankle sprain Disposition: HOME SELF-CARE Condition: Good Instructions (If sedation given, give patient instructions): Ankle Sprain (ED) Additional Instructions: Please use medication as discussed. Please follow-up with orthopedic surgery in the next 2-3 days. Please do not weight bear. Please return to emergency room if the symptoms increase or worsen or for any other concerns. Is patient prescribed a controlled substance at d/c from ED?: No Referrals: Danielito Lott MD [Primary Care Provider] - 1-2 days Dustin Noble DO [Doctor of Osteopathic Medicine] - 1-2 days Time of Disposition: 23:12
[2018-06-24 00:03] VITALS: BP 118/78; PULSE 80; RESP 18; TEMP 98.4
== END 2018-06-24 00:02 | disposition home or self-care (01) ==
LOC: EC 22:10
DX: S93.401A Sprain of unspecified ligament of right ankle, initial encounter (principal); Q78.0 Osteogenesis imperfecta; F32.9 Major depressive disorder, single episode, unspecified; F41.9 Anxiety disorder, unspecified; Z91.040 Latex allergy status; Z79.899 Other long term (current) drug therapy; Z98.890 Other specified postprocedural states; X50.9XXA Other and unspecified overexertion or strenuous movements or postures, initial encounter; Y93.89 Activity, other specified
CPT/HCPCS: 29515; 99283

== ENCOUNTER 2019-10-04 11:46 | Emergency (ER) | payer MEDICARE ==
[2019-10-04 11:57] VITALS: BP 103/67; PULSE 102; RESP 18; TEMP 98.4
--- NOTE | 2019-10-04 12:04 | ED ---
Upper Extremity HPI - General Chief Complaint: Extremity Injury, Upper Stated Complaint: rt elbow injury Time Seen by Provider: 10/04/19 11:57 Source: patient, RN notes reviewed Mode of arrival: ambulatory Limitations: no limitations - History of Present Illness Initial Comments: This a 24-year-old female presents emergency Department tingling a right elbow pain. Patient states that her nephew pulled her arm quickly. Patient concerned about possible fracture as she has osteogenesis imperfecta, patient states she has pain with movement. Patient states her swelling in her right elbow. Patient offers no other complaints . Patient denies any paresthesias. - Related Data Home Medications Medication Instructions Recorded Confirmed Topiramate [Topamax] 50 mg PO QAM 10/28/13 05/05/18 Citalopram Hydrobromide [CeleXA] 20 mg PO QAM 09/18/17 05/05/18 Allergies Allergy/AdvReac Type Severity Reaction Status Date / Time latex Allergy Rash/Hives Verified 06/23/18 22:30 Review of Systems ROS Statement: Those systems with pertinent positive or pertinent negative responses have been documented in the HPI. ROS Other: All systems not noted in ROS Statement are negative. Past Medical History Past Medical History: Asthma, GERD/Reflux Additional Past Medical History / Comment(s): OSTEOGENESIS IMPERFECTA, seasonal asthma. History of Any Multi-Drug Resistant Organisms: None Reported Past Surgical History: Orthopedic Surgery Additional Past Surgical History / Comment(s): Bilateral leg surgery, elbow surgery, left knee cap partially missing; HAS HAD MULTIPLE ORTHOPEDIC SURGERIES. Past Anesthesia/Blood Transfusion Reactions: No Reported Reaction Past Psychological History: Anxiety, Depression Smoking Status: Never smoker Past Alcohol Use History: None Reported Past Drug Use History: Marijuana - Past Family History Mother Family Medical History: No Reported History General Exam Limitations: no limitations General appearance: alert, in no apparent distress Head exam: Present: atraumatic, normocephalic, normal inspection Respiratory exam: Present: normal lung sounds bilaterally. Absent: respiratory distress, wheezes, rales, rhonchi, stridor Cardiovascular Exam: Present: regular rate, normal rhythm, normal heart sounds. Absent: systolic murmur, diastolic murmur, rubs, gallop, clicks Extremities exam: Present: other (Right elbow there is moderate swelling, tenderness with palpation and slightly decreased range of motion secondary pain neurovascular intact) Neurological exam: Present: alert Skin exam: Present: warm, dry, intact, normal color Course Vital Signs 10/04/19 11:54 Temperature 98.4 F Pulse Rate 102 H Respiratory 18 Rate Blood Pressure 103/67 O2 Sat by Pulse 99 Oximetry Procedures - Orthopedic Splinting/Casting Injury #1 Side: right Upper Extremity Injury Location: elbow, short arm Upper Extremity Immobilizer: posterior splint, synthetic pre-padded splint Medical Decision Making - Medical Decision Making X-ray shows possible proximal ulnar fracture. Patient was splinted and follow up with her orthopedic physician Dr. Damon. Disposition Clinical Impression: Fracture of right proximal ulna Disposition: HOME SELF-CARE Condition: Stable Instructions (If sedation given, give patient instructions): Arm Fracture in Adults (ED) Additional Instructions: Please return to the Emergency Department if symptoms worsen or any other concerns. Is patient prescribed a controlled substance at d/c from ED?: No Referrals: Danielito Lott MD [Primary Care Provider] - 1-2 days Jaime Enriquez MD [STAFF PHYSICIAN] - 1-2 days Time of Disposition: 12:27
--- NOTE | 2019-10-04 12:22 | XR ---
EXAMINATION TYPE: XR elbow complete RT DATE OF EXAM: 10/04/2019 COMPARISON: NONE HISTORY: Pain FINDINGS: Three views of the elbow demonstrate a findings suspicious for pathologic joint effusion. There is mar ggestion of posterior fat pad. There is a defect involving the proximal ulna on the AP view of indete rminate age. IMPRESSION: 1. No pathologic joint effusion. If there is slight cortical defect involving the proximal ulna corre late with point tenderness for fracture.
== END 2019-10-04 12:54 | disposition home or self-care (01) ==
LOC: EC 11:46
DX: S52.001A Unspecified fracture of upper end of right ulna, initial encounter for closed fracture (principal); F32.9 Major depressive disorder, single episode, unspecified; F41.9 Anxiety disorder, unspecified; Z79.899 Other long term (current) drug therapy; Z91.040 Latex allergy status; Z98.890 Other specified postprocedural states; X50.9XXA Other and unspecified overexertion or strenuous movements or postures, initial encounter
CPT/HCPCS: 29125; 99283

== ENCOUNTER 2020-01-03 23:36 | Emergency (ER) | payer MEDICARE ==
--- NOTE | 2020-01-04 00:41 | ED ---
Back Pain HPI - General Chief Complaint: Back Pain/Injury Stated Complaint: Fall Time Seen by Provider: 01/03/20 23:47 Source: family, EMS Limitations: no limitations - History of Present Illness Initial Comments: 24 year-old female patient with past medical history significant for osteogenesis imperfecta is presenting to the emergency department today as a transfer from [facility] after being diagnosed with a T12 compression fracture. Patient was on a swing earlier in the day, she fell off and had immediate onset of back pain and pain to the middle finger on the right hand. She was evaluated at [place] had CT of the thoracic spine which showed a T12 compression fracture with 50% height loss. She also had a comminuted mildly displaced fracture of the right middle finger. Patient was given several doses of pain medication at [place] and was unable to ambulate or even sit up with much success. Patient sees Dr. Jaime Damon for her orthopedic care and requested to be transferred to [facility] for further evaluation and pain management. Upon arrival patient states her pain is currently at a 4 out of 10 on the pain scale, but worsens significantly with any type of movement. She states that her pain maximally was around 7-8 out of 10. She denies any numbness, tingling, or weakness to the lower extremities. Denies any saddle anesthesia or loss of bowel or bladder control. She denies hitting her head or losing consciousness with the fall earlier today. Denies any other injuries or concerns. Patient denies any headache, neck pain, chest pain, shortness of breath, dizziness, weakness, abdominal pain, nausea, vomiting, or difficulties with bowel movements or urination. - Related Data Home Medications Medication Instructions Recorded Confirmed Topiramate [Topamax] 50 mg PO QAM 10/28/13 05/05/18 Citalopram Hydrobromide [CeleXA] 20 mg PO QAM 09/18/17 05/05/18 Allergies Allergy/AdvReac Type Severity Reaction Status Date / Time latex Allergy Rash/Hives Verified 01/03/20 23:41 Review of Systems ROS Statement: Those systems with pertinent positive or pertinent negative responses have been documented in the HPI. ROS Other: All systems not noted in ROS Statement are negative. Past Medical History Past Medical History: Asthma, GERD/Reflux Additional Past Medical History / Comment(s): OSTEOGENESIS IMPERFECTA, seasonal asthma. History of Any Multi-Drug Resistant Organisms: None Reported Past Surgical History: Orthopedic Surgery Additional Past Surgical History / Comment(s): Bilateral leg surgery, elbow surgery, left knee cap partially missing; HAS HAD MULTIPLE ORTHOPEDIC SURGERIES. Past Anesthesia/Blood Transfusion Reactions: No Reported Reaction Past Psychological History: Anxiety, Depression Smoking Status: Never smoker Past Alcohol Use History: None Reported Past Drug Use History: Marijuana - Past Family History Mother Family Medical History: No Reported History General Exam Limitations: no limitations General appearance: alert, in no apparent distress, other (This is a well-develo ped, well-nourished adult female patient in no acute distress. Vital signs upon presentation are temperature 97.5F, pulse 90, respirations 16, blood pressure 116/73.) Eye exam: Present: normal appearance, PERRL, EOMI. Absent: scleral icterus, conjunctival injection, periorbital swelling ENT exam: Present: normal exam, normal oropharynx, mucous membranes moist Neck exam: Present: normal inspection, full ROM, other (Nontender, no step-off, no deformity to firm midline palpation of the posterior cervical spine. Full ra nge of motion without pain or limitation.). Absent: tenderness, meningismus, lymphadenopathy Respiratory exam: Present: normal lung sounds bilaterally. Absent: respiratory distress, wheezes, rales, rhonchi, stridor Cardiovascular Exam: Present: regular rate, normal rhythm, normal heart sounds. Absent: systolic murmur, diastolic murmur, rubs, gallop, clicks GI/Abdominal exam: Present: soft, normal bowel sounds. Absent: distended, tenderness, guarding, rebound, rigid Extremities exam: Present: normal inspection, full ROM, normal capillary refill, other (Skin to the lower extremities is pink, warm, dry. Cap refills less than 3 seconds. Pedal pulses 2+ and equal bilaterally.). Absent: tenderness, pedal edema, joint swelling, calf tenderness Back exam: Present: normal inspection, vertebral tenderness (T12) Neurological exam: Present: alert, oriented X3, CN II-XII intact Psychiatric exam: Present: normal affect, normal mood Skin exam: Present: warm, dry, intact, normal color. Absent: rash Course Vital Signs 01/03/20 01/04/20 23:38 02:40 Temperature 97.5 F L Pulse Rate 90 87 Respiratory 16 18 Rate Blood Pressure 116/73 117/77 O2 Sat by Pulse 97 98 Oximetry Medical Decision Making - Medical Decision Making 24 year-old female patient presented to the emergency department as a transfer from [facility] for fracture of T-12. Did emergency department was unable to get her pain under control so they transferred her here for further evaluation. Upon arrival patient is reporting pain at a 4/10 on the pain scale. Pain worsens significantly with any movement. Physical exam did reveal good neurovascular status of the lower extremities. She did have some tenderness over the lower thoracic vertebrae. She is neurologically intact with no focal deficits. Report reviewed from [facility] which showed a T12 compression fracture with 50% height loss. She also had a fracture to the right middle finger which is splinted. I did speak with both [facility] Dr. Loza who is unavailable for consult until Monday. I then spoke to [facility] and Dr. Oneill is also unavailable. Patient will be transferred to [facility] for further evaluation and management. Dr. Ayala is accepting. Disposition Clinical Impression: Compression fracture of T12 vertebra, Intractable pain, Fracture of phalanx of right middle finger Disposition: OTHER INSTITUTION NOT DEFINED Condition: Serious Referrals: Danielito Lott MD [Primary Care Provider] - 1-2 days - Out of Hospital Transfer - Req. Specs Out of Hospital Transfer - Requested Specifics: Other Emergency Center ([facility])
[2020-01-04] MEDS ORDERED: HYDROmorphone 1 MG/ML 1 ML SYRINGE IVP STA (01:40)
[2020-01-04 02:40] VITALS: RESP 18
[2020-01-04 03:02] VITALS: BP 119/68; PULSE 77; TEMP 98
== END 2020-01-04 03:05 | disposition other institution (70) ==
LOC: EC 23:36
DX: S22.089A Unspecified fracture of T11-T12 vertebra, initial encounter for closed fracture (principal); S62.602A Fracture of unspecified phalanx of right middle finger, initial encounter for closed fracture; F41.9 Anxiety disorder, unspecified; F32.9 Major depressive disorder, single episode, unspecified; Q78.0 Osteogenesis imperfecta; Z79.899 Other long term (current) drug therapy; Z91.040 Latex allergy status; W09.1XXA Fall from playground swing, initial encounter
CPT/HCPCS: 99284; 96374; J1170

== ENCOUNTER → 2020-04-07 | Outpatient (CLI) | payer MEDICARE ==
--- NOTE | 2020-04-07 14:16 | CT ---
EXAMINATION TYPE: CT thor lumbar spine wo con DATE OF EXAM: 04/07/2020 COMPARISON: Plain film from outside institution 03/11/2020, prior CT from outside institution 0 HISTORY: wedge compression fx CT DLP: 895.5 mGycm Automated exposure control for dose reduction was used. FINDINGS: T12 compression deformity is again noted, only minimal retropulsion is present as on prior exam. Exte nsion of fracture line is seen from the inferior endplate on sagittal image #18 which likely courses to the superior endplate and an irregular course and is an interval finding, there has been some prog ression in the loss of height centrally. Loss of height of approximately 50% of the vertebral body is present centrally Thoracic and lumbar vertebral bodies are otherwise intact. No evident disc herniat ion. Remaining thoracic and lumbar vertebral bodies show preserved height and alignment. Disc spaces are maintained. Lobular contour of the kidneys is incidentally noted, nonobstructive punctate calcification present i n the midpole of the left kidney. IMPRESSION: T12 COMPRESSION FRACTURE DESCRIBED
== END | disposition home or self-care (01) ==
LOC: RADCTMAIN 12:02
PROVIDERS: ATTEND Orthopaedic Surgery
DX: S22.080D Wedge compression fracture of T11-T12 vertebra, subsequent encounter for fracture with routine healing (principal)
CPT/HCPCS: 72128; 72131